=== PATIENT | female | born 1990 | race Caucasian/White ===

== ENCOUNTER → 2020-06-28 14:10 | Outpatient (CLI) | payer OTHER, SELFPAY ==
--- NOTE | ~2020-06-28 | US_ITS ---
EXAMINATION: US OB transvaginal DATE: 06/28/2020 14:45 INDICATION: Uncertain dates. Spotting. TECHNIQUE: Real-time transvaginal pelvic ultrasound was performed. COMPARISON: None. FINDINGS: The uterus measures 8.6 x 5.7 x 5.9 cm. There is an intrauterine gestational sac. A yolk sac is ident ified. The crown rump length measures 1.1 cm, which correlates with an estimated gestational a ge of 7 weeks and 2 day(s) (+/-) 5 day(s). heart motion is identified measuring 149 beats per m inute (bpm) by M-mode Doppler. There are 2 small subchorionic hematomas measuring up to 10 x 3 x 6 mm . The right ovary measures 3.3 x 2.5 x 2.5 cm. The left ovary measures 1.9 x 0.9 x 1.6 cm. There is n o free fluid in the pelvis. IMPRESSION: 1. Single live intrauterine gestation with estimated date of delivery of 02/12/2021. 2. Two small subchorionic hematomas. Reviewed, dictated and finalized at location A. IMPRESSION: 1. Single live intrauterine gestation with estimated date of delivery of 02/12. 2. Two small subchorionic hematomas.
== END ==
PROVIDERS: Visit Provider Obstetrics & Gynecology Gynecology
DX: O26.841 Uterine size-date discrepancy, first trimester (principal); Z3A.00 Weeks of gestation of pregnancy not specified; O46.91 Antepartum hemorrhage, unspecified, first trimester
CPT/HCPCS: 76817

== ENCOUNTER → 2020-07-11 15:25 | Outpatient (CLI) | payer OTHER, SELFPAY ==
--- NOTE | ~2020-07-11 | US_ITS ---
EXAMINATION: US OB limited DATE: 07/11/2020 15:49 INDICATION: Subchorionic hematoma, first trimester TECHNIQUE: Real-time pelvic transabdominal and transvaginal ultrasound was performed. COMPARISON: 06/28/2020 FINDINGS: The uterus measures 5.5 x 6.4 x 6.1 cm. There is an intrauterine gestational sac. No persis tent subchorionic hematoma is identified. A yolk sac is identified. heart motion is identified measuring 182 beats per minute (bpm) by M-mode Doppler. IMPRESSION: 1. No persistent subchorionic hematoma identified. Reviewed, dictated and finalized at location A.
== END ==
PROVIDERS: Visit Provider Obstetrics & Gynecology Gynecology
DX: O36.8911 Maternal care for other specified fetal problems, first trimester, fetus 1 (principal); Z3A.00 Weeks of gestation of pregnancy not specified
CPT/HCPCS: 76815

== ENCOUNTER → 2020-07-22 13:45 | Outpatient (CLI) | payer OTHER, SELFPAY ==
--- NOTE | ~2020-07-22 | US_ITS ---
EXAMINATION: US OB <= 14 weeks fetus DATE: 07/22/2020 14:15 INDICATION: Spotting first trimester. TECHNIQUE: Real-time transabdominal obstetric ultrasound. FINDINGS: Comparison to multiple prior studies sequentially, with oldest reviewed study dated 2020. The uterus measures 12.3 x 5.7 x 8 cm. There is an intrauterine gestational sac, with pole iden tified. The crown rump length measures 4.04 cm. Small subchorionic hemorrhage is present measuring 9 x 8 x 7 mm. heart tones are identified measuring 175 BPM. Ovaries are not visualized IMPRESSION: 1. SL IUP with an EGA of 10 weeks, 5 days (EDC by initial ultrasound of 02/12/2021). 2: Small subchorionic hemorrhage. Reviewed, dictated and finalized at location A. IMPRESSION: 1. SL IUP with an EGA of 10 weeks, 5 days (EDC by initial ultrasound of 021). 2: Small subchorionic hemorrhage.
== END ==
PROVIDERS: Visit Provider Obstetrics & Gynecology Gynecology
DX: O26.851 Spotting complicating pregnancy, first trimester (principal); Z3A.10 10 weeks gestation of pregnancy
CPT/HCPCS: 76801

== ENCOUNTER → 2020-08-09 10:59 | Outpatient (CLI) | payer OTHER, SELFPAY ==
--- NOTE | ~2020-08-09 | US_ITS ---
US OB limited 08/09/2020 11:22 Indication: Subchorionic hemorrhage Procedure: Real-time Limited early obstetrical ultrasound using transabdominal technique Comparison: 07/22/2020 Findings: There is a single living intrauterine with heart rate of 165 bpm. No eviden ce for subchorionic hemorrhage on the current study. Impression: 1: Single living intrauterine in variable presentation with heart rate of 165 bpm. Reviewed, dictated and finalized at location A. Impression: 1: Single living intrauterine in variable presentation with hea rt rate of 165 bpm.
== END ==
PROVIDERS: Visit Provider Obstetrics & Gynecology Gynecology
DX: O36.8910 Maternal care for other specified fetal problems, first trimester, not applicable or unspecified (principal); Z3A.12 12 weeks gestation of pregnancy
CPT/HCPCS: 76815

== ENCOUNTER → 2020-09-12 10:09 | Outpatient (CLI) | payer OTHER, SELFPAY ==
--- NOTE | ~2020-09-12 | US_ITS ---
EXAMINATION: US OB /maternal detail DATE: 09/12/2020 11:03 INDICATION: Second trimester anatomic survey TECHNIQUE: Real-time ultrasound of the pelvis was performed. COMPARISON: None. FINDINGS: There is a single living fetus in vertex presentation. The placenta is anterior and 4.7 cm from the i nternal cervical os. heart rate is 153 beats per minute (bpm). cardiac activity and feta l movement are noted. The amniotic fluid index is subjectively normal. The following anatomy was identified as normal: 4 chamber heart 3 vessel cord cord insertion kidneys urinary bladder stomach spine diaphragm ventricles cisterna magna cerebellum The following biometric data were obtained: Biparietal diameter (BPD): 4.1 cm; head circumference (HC): 16.0 cm; abdominal circumference (AC): 12 .6 cm; femur length (FL): 2.6 cm. These measurements are concordant. Estimated weight is 226 g +/- 33 g, which correlates with the 46th percentile when 02/12/2021 i s used as estimated date of delivery. As single measurements, these parameters are each equal to the following estimated gestational ages w ith ranges of +/- 2 standard deviations: BPD: 18 weeks 4 days ( 16 weeks 6 days - 20 weeks 2 days). HC: 18 weeks 6 days ( 17 weeks 3 days - 20 weeks 2 days). AC: 18 weeks 1 days ( 16 weeks 1 days - 20 weeks 2 days). FL: 17 weeks 6 days ( 16 weeks 4 days - 19 weeks 2 days). estimated gestational age based solely on measurements from this exam is 18 weeks 3 days +/- 1 weeks 2 days. IMPRESSION: 1. Single living fetus in vertex presentation. 2. Estimated weight is 226 g +/- 33 g, which correlates with the 46th percentile when 1 is used as estimated date of delivery. Reviewed, dictated and finalized at location B. IMPRESSION: 1. Single living fetus in vertex presentation. 2. Estimated weight is 226 g +/- 33 g, which correlates with the 46th per centile when 02/12/2021 is used as estimated date of delivery.
== END ==
PROVIDERS: Visit Provider Obstetrics & Gynecology Gynecology
DX: Z36.9 Encounter for antenatal screening, unspecified (principal); Z3A.18 18 weeks gestation of pregnancy
CPT/HCPCS: 76805

== ENCOUNTER 2021-01-24 16:39 | Outpatient (CLI) | payer OTHER, SELFPAY ==
[2021-01-24 17:07] VITALS: BP 137/90; PULSE 91
[2021-01-24 17:16] VITALS: BP 139/91; PULSE 95
[2021-01-24 17:30] VITALS: BP 137/90
[2021-01-24 17:31] VITALS: BP 135/88; PULSE 91
[2021-01-24 17:31] LABS: Creatinine Urine 13.3 mg/dL; Total Protein Urine Random 16 mg/dL
[2021-01-24 17:33] LABS: Add Urine Microscopic? YES; Appearance Urine Clear (Clear); Bacteria Urine Trace /hpf; Basophils Percent Auto 0.2 % (0.2-1.2); Bilirubin Urine Negative (Negative); Blood Urine Negative (Negative); Color Urine Straw (Yellow); Eosinophils Absolute Auto 0.1 K/mm3 (0-0.3); Eosinophils Percent Auto 0.9 % (0-4.4); Glucose Urine UA Negative (Negative); Hematocrit 31.6 % (37.0-47.0); Hemoglobin 10.9 g/dL (12.0-15.0); Immature Granulocyte Absolute 0.19 K/mm3 (0.00-0.031); Ketones Urine Negative (Negative); Leukocyte Esterase Ur 2+ LEU/UL (NEGATIVE); Lymphocytes Absolute Auto 2.11 K/mm3 (0.9-3.2); Lymphocytes Percent Auto 21.9 % (18.3-44.2); Mean Corpuscular HGB Conc 34.5 g/dl (32-36); Mean Corpuscular Hemoglobin 32.6 pg (26-34); Mean Corpuscular Volume 94.6 fl (80-100); Mean Platelet Volume 10.7 fl (7.4-10.4); Monocytes Percent Auto 10.1 % (2.6-8.5); Neutrophils Absolute Auto 6.3 K/mm3 (1.3-6.7); Neutrophils Percent Auto 64.9 % (45.5-73.1); Nitrate Urine Negative (Negative); Platelet Count Result 180 k/mm3 (150-375); Protein Urine Negative (Negative); RBC Urine 0-2 /hpf (0-2); Red Blood Count 3.34 M/mm3 (4.2-5.4); Red Cell Distribution Width 13.3 % (11.5-14.5); Squamous Epithelial Cell Urine Occasional /hpf (Few); Urobilinogen Urine Negative mg/dL (<2.0); WBC Urine 0-3 /hpf (0-3); White Blood Count 9.7 K/mm3 (4.5-10.0)
[2021-01-24 17:37] LABS: Specific Grav Ur 1.003 (1.001-1.035)
[2021-01-24 17:38] LABS: Alanine Aminotransferase 31 U/L (4-35); Albumin Level 3.7 g/dL (3.5-5.1); Alkaline Phosphatase 139 U/L (38-126); Anion Gap 7 mmol/L (8-16); Aspartate Amino Transferase 36 U/L (14-36); Bilirubin,Total 0.3 mg/dL (0.2-1.3); Blood Urea Nitrogen 7 mg/dL (7-17); Calcium 9.3 mg/dL (8.4-10.2); Carbon Dioxide 24 mmol/L (22-30); Chloride 104 mmol/L (98-107); Estimated Glomerular Filt Rate > 60; Glucose 99 mg/dL (65-110); Potassium 3.3 mmol/L (3.4-5.0); Sodium 135 mmol/L (137-145)
[2021-01-24 17:45] LABS: Uric Acid 3.6 mg/dL (2.5-7.5)
[2021-01-24 17:46] VITALS: BP 136/90; PULSE 88
--- NOTE | 2021-01-24 17:52 | PC.NURSE ---
called,read lab results and bp's. Orders received to send pt home with 24hr urine.
[2021-01-24 18:03] VITALS: BP 136/90; PULSE 88
== END 2021-01-24 18:00 | disposition home or self-care (01) ==
LOC: ANHOBOP 16:50 → ANHOBPP 16:50
PROVIDERS: PCP Family Medicine; Visit Provider Obstetrics & Gynecology Gynecology
DX: O13.1 Gestational [pregnancy-induced] hypertension without significant proteinuria, first trimester (principal); O02.1 Missed abortion; Z3A.01 Less than 8 weeks gestation of pregnancy
CPT/HCPCS: 36415; 59025; 80053; 81001; 82570; 84156; 84550; 85025; 87086; 99199

== ENCOUNTER 2021-02-06 05:53 | Inpatient (IN) | payer OTHER, SELFPAY ==
[2021-02-06] VITALS (88 sets, daily range): BP systolic 107–166; BP diastolic 65–116; PULSE 81–122; RESP 18–20; TEMP 36.6–37.3; O2SAT 96–100; BMI 24.0
[2021-02-06] MEDS: AMPICILLIN 2 GM/NS 100 ML 2 GM/100 ML BAG IVPB (06:54)
[2021-02-06] MEDS: LACTATED RINGERS 1,000 ML 125 ML IV CONT ×2 (06:55→11:33)
--- NOTE | 2021-02-06 06:58 | LDADM ---
This patient, Lorna Quiroz, was admitted to Labor/Delivery/Recovery 104 on 02/06/21 at 05:53. Plans for labor, pain management and were discussed with patient. Patient/family oriented to hospital policies and general routines including ID bracelet, bed and alarms, visiting hours, pain management, procedures, bathroom and other care routines, personal items, smoking policy, room service/diet and guest tray routines, security routines, and visiting hours. Patient/Family are encouraged to report perceived risks to care and to ask questions if they do not understand what they are told or what they should do. See OBIX for further documentation.
[2021-02-06 07:01] LABS: Basophils Percent Auto 0.2 % (0.2-1.2); Eosinophils Absolute Auto 0.1 K/mm3 (0-0.3); Hematocrit 32.1 % (37.0-47.0); Hemoglobin 11.1 g/dL (12.0-15.0); Immature Granulocyte Absolute 0.15 K/mm3 (0.00-0.031); Immature Granulocyte Percent A 1.4 % (0-0.5); Lymphocytes Absolute Auto 2.33 K/mm3 (0.9-3.2); Lymphocytes Percent Auto 22.2 % (18.3-44.2); Mean Corpuscular HGB Conc 34.6 g/dl (32-36); Mean Corpuscular Hemoglobin 31.4 pg (26-34); Mean Corpuscular Volume 90.7 fl (80-100); Mean Platelet Volume 11.2 fl (7.4-10.4); Monocytes Absolute Auto 0.9 K/mm3 (0.1-0.6); Monocytes Percent Auto 8.4 % (2.6-8.5); Neutrophils Percent Auto 66.8 % (45.5-73.1); Platelet Count Result 204 k/mm3 (150-375); Red Blood Count 3.54 M/mm3 (4.2-5.4); Red Cell Distribution Width 12.8 % (11.5-14.5); White Blood Count 10.5 K/mm3 (4.5-10.0)
[2021-02-06 07:10] LABS: Alanine Aminotransferase 23 U/L (4-35); Albumin Level 3.5 g/dL (3.5-5.1); Alkaline Phosphatase 152 U/L (38-126); Anion Gap 8 mmol/L (8-16); Aspartate Amino Transferase 28 U/L (14-36); Bilirubin,Total 0.3 mg/dL (0.2-1.3); Blood Urea Nitrogen 6 mg/dL (7-17); Calcium 9.3 mg/dL (8.4-10.2); Carbon Dioxide 20 mmol/L (22-30); Chloride 106 mmol/L (98-107); Estimated Glomerular Filt Rate > 60; Glucose 108 mg/dL (65-110); Potassium 3.1 mmol/L (3.4-5.0); Sodium 134 mmol/L (137-145); Uric Acid 4.4 mg/dL (2.5-7.5)
[2021-02-06 07:11] LABS: Creatinine Urine 33.6 mg/dL; Total Protein Urine Random 21 mg/dL; Ur Ttl Prot Creatinine Ratio 0.63 mg/mg (0-0.20)
[2021-02-06] MEDS: OXYTOCIN 30 UNITS/NS 500 ML 30 UNITS/500 ML BAG IV CONT (07:13)
--- NOTE | 2021-02-06 08:29 | WPDOBADMIT ---
Obstetrics - Admit Note Admission Note: record reviewed. No pertinent additions to the history and/or any subsequent changes in the physical findings that are not consistent with the expected course of the were found. Additions to the history and/or subsequent changes in the physical findings follow. None.Here at 39+ wks for MIL. Cervix /-2 AROM with clear fluid. VTX. FHTs reactive.
[2021-02-06 10:26] LABS: Rapid Plasma Reagin Non-Reactive (NonReactive)
[2021-02-06] MEDS: AMPICILLIN 1 GM/NS 50 ML 1 GM/50 ML BAG IVPB ×2 (10:41→14:40)
[2021-02-06] MEDS: fentaNYL CITRATE INJ (*CRX) 100 MCG/2 ML VIAL 50 MCG IV PUSH (11:30)
--- NOTE | 2021-02-06 11:59 | WPDANESEPP ---
Anes - Eval Pre Procedure Procedure: Labor Epidural Date/Time: 02/06/21 11:59 Surgeon: mic Preop Diagnosis: Labor Pain Pre Op Diagnosis: IOL Patient Data Age: 30 Gender: F Height: 1.75 m Weight: 74 kg Last Vital Signs Temp 36.6 C 02/06/21 11:56 Pulse 88 02/06/21 11:56 Resp 20 02/06/21 11:56 BP 133/83 02/06/21 11:56 Pulse Ox 97 02/06/21 11:55 Allergies Allergy/AdvReac Type Severity Reaction Status Date / Time silicone Allergy Mild Itching Verified 01/18/21 14:40 nickel Allergy Unknown Itching Verified 01/18/21 14:40 topiramate Allergy Unknown Itching Verified 01/18/21 14:40 Home Medications Medication Instructions Recorded Confirmed Type aspirin [Aspirin Low Dose] 81 mg PO DAILY 01/18/21 02/06/21 History cetirizine [Zyrtec] 10 mg PO DAILY 01/18/21 02/06/21 History cholecalciferol (vitamin D3) 50 mcg PO DAILY 01/18/21 02/06/21 History [Vitamin D3] famotidine [Pepcid AC] 10 mg PO DAILY 01/18/21 02/06/21 History ferrous sulfate 325 mg PO BID 01/18/21 02/06/21 History labetalol 50 mg PO Q12H 01/18/21 02/06/21 History prenat.vits,leidy,ufq-uusw-rsfym 1 tablet PO DAILY 01/18/21 02/06/21 History [ #2] triamcinolone acetonide [Nasacort 2 spray INTRANASAL DAILY 01/18/21 02/06/21 History Allergy] acetaminophen [Tylenol] 650 mg PO PRN PRN 02/06/21 02/06/21 History eykeulltdt-lbkcppzravlcw-dfgh 1 cap PO Q4-6H PRN 02/06/21 02/06/21 History docusate sodium [Colace] 100 mg PO DAILY 02/06/21 02/06/21 History doxylamine succinate [Unisom 12.5 mg PO HS 02/06/21 02/06/21 History (doxylamine)] nitrofurantoin monohyd/m-cryst 100 mg PO PRN PRN 02/06/21 02/06/21 History ondansetron [Zofran ODT] 8 mg PO PRN PRN 02/06/21 02/06/21 History Laboratory Tests 02/06/21 02/06/21 02/06/21 06:47 06:47 06:47 WBC 10.5 K/mm3 H K/mm3 (4.5-10.0) RBC 3.54 M/mm3 L M/mm3 (4.2-5.4) Hgb 11.1 g/dL L g/dL (12.0-15.0) Hct 32.1 % L % (37.0-47.0) MCV 90.7 fl fl (80-100) MCH 31.4 pg pg (26-34) MCHC 34.6 g/dl g/dl (32-36) RDW 12.8 % % (11.5-14.5) Plt Count 204 k/mm3 k/mm3 (150-375) MPV 11.2 fl H fl (7.4-10.4) Immature Gran % (Auto) 1.4 % H % (0-0.5) Neut % (Auto) 66.8 % % (45.5-73.1) Lymph % (Auto) 22.2 % % (18.3-44.2) [place] % (Auto) 8.4 % % (2.6-8.5) Eos % (Auto) 1.0 % % (0-4.4) Baso % (Auto) 0.2 % % (0.2-1.2) Lymph # (Auto) 2.33 K/mm3 K/mm3 (0.9-3.2) [place] # (Auto) 0.9 K/mm3 H K/mm3 (0.1-0.6) Eos # (Auto) 0.1 K/mm3 K/mm3 (0-0.3) Baso # (Auto) 0.0 K/mm3 K/mm3 (0.0-0.1) Abs Immat Gran (auto) 0.15 K/mm3 H K/mm3 (0.00-0.031) Absolute Neuts (auto) 7.0 K/mm3 H K/mm3 (1.3-6.7) Absolute Nucleated RBC 0.0 K/mm3 K/mm3 (0.0-0.012) Nucleated RBC % 0.0 % % (0.0-0.2) Sodium Potassium Chloride Carbon Dioxide Anion Gap BUN Creatinine Estim Creat Clear Calc Estimated GFR Glucose Uric Acid Calcium Total Bilirubin AST ALT Alkaline Phosphatase Total Protein Albumin U Random Total Protein 21 mg/dL mg/dL Urine Creatinine 33.6 mg/dL mg/dL Protein/Creat Ratio 2 0.63 mg/mg H mg/mg (0-0.20) RPR Non-reactive (NonReactive) Blood Type Antibody Screen 02/06/21 02/06/21 06:47 07:24 WBC RBC Hgb Hct MCV MCH MCHC RDW Plt Count MPV Immature Gran % (Auto) Neut % (Auto) Lymph % (Auto) [place] % (Auto) Eos % (Auto) Baso % (Auto)
--- NOTE | 2021-02-06 17:11 | PM.OBPRVD ---
OB - Delivery Note Procedure Delivery date: 02/06/21 Procedure: events: Labor Induction (for CHTN) Intrapartal events: None Induction method: AROM and per pitocin protocol Delivery monitor: external FHT and external uterine Route of delivery: Laceration Description: Perineal - 4th Degree (1 cm into rectal wall) Delivery repair: vicryl (4-0 for rectal wall; 0 vicryl for sphincter; 3-0 for vaginal wall) Specimen: Yes (placenta bilobed) Quantitative Blood Loss (ml): 600 Anesthesia type: Epidural Disposition: floor [place] Baby Date of : 02/06/21 Weeks of gestation at delivery: 39 Infant gender: Female Weight (pounds): 7 Weight (ounces): 10 presentation: vertex position: Right Occiput Anterior Placenta delivery description: Spontaneous cord vessel description: 3 Vessels score one minute: 9 score five minutes: 9
--- NOTE | 2021-02-06 17:14 | PM.OBDSVD ---
DS: Admitting Diagnosis Discharge Date 02/08/21 Admitting Diagnosis 39 wks for MIL for CHTN DS: Discharge Diagnosis Discharge Diagnosis (1) (normal spontaneous vaginal delivery): Code(s): O80 - Encounter for full-term uncomplicated delivery Status: Acute (2) Fourth degree laceration of perineum, delivered, current hospitalization: Code(s): O70.3 - Fourth degree perineal laceration during delivery Status: Acute OB - DS: Summary OB Procedures : NST and Ultrasound OB Procedures Intrapartum: Spontaneous Vag Delivery OB Procedures: : None Peripartum Data Infant Delivery Method: Natural Vaginal Laceration Description: Vaginal - 4th Degree complications: none Status at Discharge Functional status at discharge: independent ambulation Overall status at discharge: patient is progressing back to baseline Time Spent with Patient Time attestation: Total time spent providing and/or coordinating discharge services: DS: Data Data Completed and Pending Labs on day of discharge: Labs from last 24 hours 02/06/21 02/06/21 02/06/21 07:24 06:47 06:47 WBC RBC Hgb Hct MCV MCH MCHC RDW Plt Count MPV Immature Gran % (Auto) Neut % (Auto) Lymph % (Auto) Yell % (Auto) Eos % (Auto) Baso % (Auto) Lymph # (Auto) Yell # (Auto) Eos # (Auto) Baso # (Auto) Abs Immat Gran (auto) Absolute Neuts (auto) Absolute Nucleated RBC Nucleated RBC % Sodium 134 L Potassium 3.1 L Chloride 106 Carbon Dioxide 20 L Anion Gap 8 BUN 6 L Creatinine 0.40 L Estim Creat Clear Calc Not Reportable Estimated GFR > 60 Glucose 108 Uric Acid 4.4 Calcium 9.3 Total Bilirubin 0.3 AST 28 ALT 23 Alkaline Phosphatase 152 H Total Protein 6.0 L Albumin 3.5 U Random Total Protein 21 Urine Creatinine 33.6 Protein/Creat Ratio 2 0.63 H RPR Blood Type A Positive Antibody Screen Negative 02/06/21 02/06/21 06:47 06:47 WBC 10.5 H RBC 3.54 L Hgb 11.1 L Hct 32.1 L MCV 90.7 MCH 31.4 MCHC 34.6 RDW 12.8 Plt Count 204 MPV 11.2 H Immature Gran % (Auto) 1.4 H Neut % (Auto) 66.8 Lymph % (Auto) 22.2 Yell % (Auto) 8.4 Eos % (Auto) 1.0 Baso % (Auto) 0.2 Lymph # (Auto) 2.33 Yell # (Auto) 0.9 H Eos # (Auto) 0.1 Baso # (Auto) 0.0 Abs Immat Gran (auto) 0.15 H Absolute Neuts (auto) 7.0 H Absolute Nucleated RBC 0.0 Nucleated RBC % 0.0 Sodium Potassium Chloride Carbon Dioxide Anion Gap BUN Creatinine Estim Creat Clear Calc Estimated GFR Glucose Uric Acid Calcium Total Bilirubin AST ALT Alkaline Phosphatase Total Protein Albumin U Random Total Protein Urine Creatinine Protein/Creat Ratio 2 RPR Non-reactive Blood Type Antibody Screen Discharge Plan Discharge Attending physician on discharge: Ale Fragoso Discharging Clinician: Se Ojeda Anticipated Discharge Date/Time: 02/08/21 17:16 Patient Disposition: Home, Self-Care Activity: may shower and pelvic rest Diet: regular Discharge Instructions: Education: Mom and Baby Guide Given to: Mother Follow-Up: Call your delivering provider's office for an appointment to be seen in: 1 Week Mom and baby should come to the [facility] for the follow-up appointment. Appointment Date/Time: February 10, 2021 at 11:00 am What to expect at your follow-up visit: Blood Pressure Check Call [phone] if you are unable to keep your appointment time. BREAST CARE: * Wear a snug supportive bra. * For engorgement discomfort: Breast Feeding: * Apply warm moist washcloths * Express milk as needed to relieve engorgement * Wear loose clothing Bottle Feeding: * May apply ice packs * For sore nipples: * Ident
[2021-02-06] MEDS: OXYTOCIN 30 UNITS/NS 500 ML 30 UNITS/500 ML BAG 125 UNITS IV CONT (17:17)
[2021-02-06] MEDS: BENZOCAINE 20% AER SPR (*SP) 56 GM CAN 1 SPRAY TOPICAL (18:58)
[2021-02-06] MEDS: WITCH HAZEL 40 PADS 1 PAD TOPICAL (18:58)
[2021-02-06] MEDS: LABETALOL HCL 50 MG TABLET PO (18:58)
[2021-02-06] MEDS: IBUPROFEN 600 MG TABLET PO (18:59)
--- NOTE | 2021-02-06 20:59 | OBPPTRN ---
Patient transferred to post room #291 via wheelchair. Support person present. Oriented to unit, room, information board, rooming in, admission packet and security measures. Patient verbalizes understanding.
[2021-02-07] VITALS (8 sets, daily range): BP systolic 108–126; BP diastolic 52–80; PULSE 76–100; RESP 16–18; TEMP 36.6–36.9; O2SAT 97–99
[2021-02-07] MEDS: IBUPROFEN 600 MG TABLET PO ×4 (00:21→22:54)
[2021-02-07] MEDS: ACETAMINOPHEN 325 MG TABLET 650 MG PO ×2 (04:08→12:26)
[2021-02-07 05:19] LABS: Hematocrit 23.5 % (37.0-47.0)
[2021-02-07] MEDS: LABETALOL HCL 50 MG TABLET PO ×2 (05:41→17:45)
--- NOTE | 2021-02-07 07:29 | WPDANLDPN2 ---
Anes-Prog Note L&D Date/Time: 02/07/21 07:29 Comfortable throughout: labor and delivery Neuraxial method: epidural Epidural/Spinal procedure site: clean & non-tender Neuro status: Neuro function grossly intact. Cardiovascular status: normal Respiratory status: normal Airway patency: baseline Mental status: baseline Post-Op hydration status: normal Vital Signs: Last Vital Signs Temp 36.6 C 02/07/21 04:00 Pulse 76 02/07/21 05:41 Resp 18 02/07/21 04:00 BP 121/79 02/07/21 04:00 Pulse Ox 100 02/06/21 21:34 Pain score (VAS): 0 I/O: Intake & Output 02/06/21 02/06/21 02/07/21 15:59 23:59 07:59 Intake Total 1100 1500 Output Total 89 400 Balance 1100 1411 -400 Post-procedural complaints: none Patient feedback: Patient satisfied with anesthetic care.
--- NOTE | 2021-02-07 07:38 | PM.OBPNVD ---
OB - PN: Subj Subjective Date/time seen: 02/07/21 07:38 Patient comments: no complaints and pain well controlled baby status: doing well OB - PN: Obj Data Labs CBC & Chem 7: 02/07/21 04:10 02/06/21 06:47 Labs: Laboratory Results - last 24 hr 02/06/21 02/06/21 02/07/21 06:47 07:24 04:10 Hgb 8.0 L D Hct 23.5 L RPR Non-reactive Blood Type A Positive Antibody Screen Negative OB - PN A/P Plan day: 1 Plan: routine care Time Spent With Patient Time: Total time spent is greater than 50% in coordination of care (as documented) at patient's floor/unit and/or counseling patient: Exam : Bimanual exam- vagina & uterus: other (Uterus firm, nt @U)
--- NOTE | 2021-02-07 08:45 | PC.NURSE ---
Consult with pt., mother reports is sleepy for most feeding and is using a nipple shield. Reviewed feeding cues, frequencies, duration of feedings, feeding elimination flow sheet, and signs of adequate intake. Demonstrated stimulation techniques to wake for feeding. Reviewed signs of a correct latch, effective nursing and suck swallow ratio. Nipple care reviewed of lanolin after feedings and warm compresses as needed. Requested mother to call out for RN/LC assistance next feeding to assess latch due nipple shield use. Instructed feeding should be initiated three hours from start of last feeding or if feeding cues are noted before. Mother voiced understanding of information shared.
[2021-02-07] MEDS: MULTIVIT/MIN/PREN/FOL AC/IRON TABLET 1 TAB PO (08:52)
[2021-02-07] MEDS: POLYSACCHARIDE IRON COMPLEX 150 MG CAPSULE PO ×2 (08:53→16:50)
[2021-02-07] MEDS: DOCUSATE SODIUM 100 MG CAPSULE PO ×2 (08:53→16:50)
--- NOTE | 2021-02-07 11:15 | PC.NURSE ---
Mother called out for assist with feeding. is able to freely thrust tongue past gum ridge and flange both lips. Skin is intact on both nipples, no redness and bruising noted. Nipple care reviewed of lanolin after feedings, warm compresses as needed. Reviewed infant feeding cues, frequencies, duration of feedings, feeding elimination flow sheet, and signs of adequate intake. Demonstrated stimulation techniques to wake infant for feeding. Assisted with infant to breast. Reviewed positioning/alignment in cross cradle, holding breast in ?U? hold and guided asymmetrical latch on. Reviewed rational for each. Suggested to attempt first without nipple shield. Infant was unable to latch deeply and draw nipple in. Reviewed nipple shield precautions and possible complications. Instructions given on application and cleaning of shield. Patient able to return demonstration on proper application of shield. Discussed the need to initiate pumping if infant continues to nurse with the shield. Patient verbalizes understanding. With shield in place, was able to latch deeply. Infant nursed eagerly, with steady draws for short burst followed with long pausing. Suggested to stimulate to keep infant awake and nursing. Mother and FOB stimulated , responded with bursts of sucking. Infant was able to maintain latch without discomfort to mother. Demonstrated how to adjust latch more deeply while feeding if needed. Discussed the difference of effective vs ineffective feeding. Reviewed infant is latching with good burst of suckling, she is not feeding consistently with adequate milk transfer at this time. Feeding options discussed, reviewed could be supplemented after feedings with 15mls of EBM or formula by paced feeding. Mother would then pump for 15 minutes. Parents do not wish to supplement at this time. Instructed mother to call out for RN assistance if she is unable to latch infant for feeding or she has discomfort with nursing. Instructed feeding should be initiated three hours from start of last feeding or if feeding cues are noted before. Mother voiced understanding of information shared. Report to primary RN
--- NOTE | 2021-02-07 12:30 | PC.NURSE ---
Breast pump provided due to nipple shield use and ineffective feeding. Instructions given on breast pump care and usage, pumping schedule, nipple care, and collection and storage of breast milk. Encouraged [id number], breast massage and manual expression to stimulate supply. Assessed patient for correct flange size, placement and draw. Patient verbalizes and demonstrates understanding of instructions. Discussed colostrum vs milk supply and mother may not see more than a few drops the first few days, milk should transition in by day 3 and she may see more volume pumped per session.
[2021-02-08] VITALS: BP 124/82; PULSE 92; RESP 16; TEMP 36.9; O2SAT 100
[2021-02-08 03:30] VITALS: BP 119/72; PULSE 102; RESP 18; TEMP 36.9; O2SAT 100
[2021-02-08 04:59] VITALS: PULSE 61
[2021-02-08] MEDS: IBUPROFEN 600 MG TABLET PO ×2 (04:59→09:49)
[2021-02-08] MEDS: LABETALOL HCL 50 MG TABLET PO (04:59)
[2021-02-08 07:15] VITALS: BP 128/88; PULSE 104; RESP 18; TEMP 37.3; O2SAT 99
--- NOTE | 2021-02-08 08:00 | PC.NURSE ---
PT introductions made and plan of care discussed per post , pain management, breast , bottle feeding, daily care activities and pending discharge to home. PT received discharge instructions per protocol and verbalized understanding of such care. PT received instructions and education this shift per one to one discussion , mom baby care guide book, demonstration. PT and fob both received instructions and no barriers to learning identified at this time.
--- NOTE | 2021-02-08 09:30 | PC.NURSE ---
Observed mother is able to independently latch infant with appropriate positioning/alignment using nipple shield. She denies any nipple discomfort, is feeding as required and waking to feed if needed. Infant is more awake and making eager attempts with and maintaining latch. will eagerly nurse the first 2-3 minutes then fall asleep at breast maintaining good latch. has been enticed with formula, she will have a few bursts of suckling then fall asleep. Mother bottle fed most of the night due to jaundice and under bili lights has had a few effective feedings in the past 24 hours, all feedings is supplemented. Infant is currently meeting outcomes for weight, output, jaundice and feeding frequencies. has had jaundice infant PCP has suggested supplement after all breastfeedings/attempts. Mother continues to pump after all feedings without difficulties or discomfort. Mother has a pump for home use, assisted mother with use before discharge. Discussed the difference of effective vs ineffective feeding. Reviewed requires supplementation after all feedings. He is latching with good burst of suckling, he is not feeding consistently with adequate milk transfer at this time and continues to need to be supplement after . Feeding plan discussed, Feeding Plan is for mother to put to breast each feeding for up to 15 minutes, then pace feed supplement 25-30 mls and pump for 10-15 minutes. Discussed increasing supplementation as infant requires to satisfactions. Reviewed paced feeding and suggested to stop when is satisfied, as long as is having required output. With increased supplementation may not want to feed for 4 hours. Mother will continue to pump on feeding schedule and will increase session to 20 minutes if pumping every 4 hours.
[2021-02-08] MEDS: POLYSACCHARIDE IRON COMPLEX 150 MG CAPSULE PO (09:48)
[2021-02-08] MEDS: MULTIVIT/MIN/PREN/FOL AC/IRON TABLET 1 TAB PO (09:48)
[2021-02-08] MEDS: DOCUSATE SODIUM 100 MG CAPSULE PO (09:48)
[2021-02-08] MEDS: ACETAMINOPHEN 325 MG TABLET 650 MG PO (09:48)
[2021-02-08 10:00] VITALS: PULSE 104; RESP 18; O2SAT 99
--- NOTE | 2021-02-08 13:45 | PC.NURSE ---
PT received discharge instructions per protocol and verbalized understanding of such care
--- NOTE | 2021-02-08 14:15 | PC.NURSE ---
PT discharged to home ambulatory accompanied by spouse and and taken to waiting car. follow up appts confirmed
[2021-02-10 11:13] VITALS: BP 136/84; PULSE 85; RESP 20; TEMP 37.2; O2SAT 100
== END 2021-02-08 14:15 | disposition home or self-care (01) | DRG 768 ==
LOC: ANHLDR 02-09 09:24 → ANHOB2 02-09 09:24
PROVIDERS: Admitting Provider Obstetrics & Gynecology Gynecology; Visit Provider Obstetrics & Gynecology
DX: O13.4 Gestational [pregnancy-induced] hypertension without significant proteinuria, complicating childbirth (principal); Z37.0 Single live birth; O70.3 Fourth degree perineal laceration during delivery; O99.824 Streptococcus B carrier state complicating childbirth; O43.193 Other malformation of placenta, third trimester; Z3A.39 39 weeks gestation of pregnancy
CPT/HCPCS: 36415; 80053; 82570; 84156; 84550; 85014; 85018; 85025; 86592; 86850; 86900; 86901; 88307; A9270; J0290; J2590; J3010; J7120